=== PATIENT | male | born 1975 | race Caucasian/White ===

== ENCOUNTER → 2020-07-27 01:53 | Outpatient (CLI) | payer OTHER, SELFPAY ==
[2020-07-27 19:34] LABS: SARS-CoV-2 RNA PCR Negative
== END ==
PROVIDERS: PCP Family Medicine; Visit Provider Internal Medicine Gastroenterology
DX: Z01.812 Encounter for preprocedural laboratory examination (principal); Z20.822 Contact with and (suspected) exposure to COVID-19
CPT/HCPCS: C9803; U0003; U0005

== ENCOUNTER 2020-07-30 01:20 | Day surgery (SDC) | payer OTHER, SELFPAY ==
[2020-07-16 15:20] VITALS: BMI 35.4
[2020-07-30] MEDS: LACTATED RINGERS 1,000 ML 150 ML IV CONT (13:52)
--- NOTE | 2020-07-30 13:52 | WPDANESEPPF ---
Anes - Initial Pre Proc Eval Procedure: Operation Date: 07/30/20 14:00 Proposed Procedures p Esophagogastroduodenoscopy - Behzad Mcgill MD Date/Time: 07/30/20 13:52 Surgeon: Behzad Mcgill MD Pre Op Diagnosis: vasques's esophagus Patient Data Age: 44 Gender: M Height: 5 ft 9 in Weight: 109 kg Allergies Allergy/AdvReac Type Severity Reaction Status Date / Time No Known Allergies Allergy Verified 07/30/20 13:53 Home Medications Medication Instructions Recorded Confirmed Type ascorbic acid (vitamin C) 1,000 mg 1,000 mg PO Q12H 06/19/20 07/16/20 History tablet,extended release diazepam 5 mg tablet 5 mg PO BID PRN 06/19/20 07/16/20 History multivitamin 1 tablet PO DAILY 06/19/20 07/16/20 History naproxen 500 mg tablet 500 mg PO BID 06/19/20 07/16/20 History niacin 250 mg tablet 250 mg PO DAILY 06/19/20 07/16/20 History omeprazole 20 mg capsule,delayed 20 mg PO DAILY 06/19/20 07/16/20 History release linaclotide 72 mcg capsule 72 mcg PO DAILY #30 cap 06/21/20 07/16/20 Rx acetaminophen 325 mg capsule 325 mg PO Q6H PRN 07/08/20 07/16/20 History Patient hx anesthesia problems: none Family hx anesthesia problems: none PMFSH Past Medical History Medical History Barretts esophagus Constipation GERD (gastroesophageal reflux disease) Hiatal hernia Family History Family History Father Acute myocardial infarction CAD (coronary artery disease) Smoker Sibling Cerebral palsy Grandparent Breast cancer Other Hypertension Diabetes mellitus Heart disease Social History Social History Smoking packs per day: 1 Smoking cigarettes per day: 20.0 Years smoked: 20 Smoking pack-years: 20.00 Smoking status: Former smoker Tobacco type: cigarettes Smoking end date: 04/26/16 Alcohol intake: current Drinks per week: 6 Substance use: never Substance use type: does not use Living arrangements: with family Additional occupation/education comments: [employer] Gender identity (if verbalized by the patient): Male Spiritual care concerns: No Anes - Eval Final PreProcedure Day of Procedure 07/30/20 13:52 Patient weight: obese Heart: regular rate and rhythm Lungs: clear to auscultation Airway: Mallampati scale class II Neurological: alert and oriented Last oral intake: >/= 8 hours ASA classification: III Emergent: no Anesthetic plan: proceed Anesthesia type and monitoring: general GIVS and standard monitoring Informed Consent: The patient's anesthetic plan and its attendant risks and benefits were discussed with the patient/family/POA. Questions were solicited and answers provided to the satisfaction of the patient/family/POA.
[2020-07-30 13:55] VITALS: BP 122/87; PULSE 76; RESP 18; TEMP 36.4; O2SAT 99; BMI 34.7
--- NOTE | 2020-07-30 14:32 | PM.HPGS ---
History of Present Illness History of Present Illness Consent: Risks, benefits, and alternatives have been discussed and questions answered. Patient agrees to proceed with procedure. 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 He is no longer getting relief with OTC and prescription medication, also had hiatal hernia and would like to proceed with umesh fundoplication. He just completed esophageal manometry at [facility]. Review of Systems Constitutional: Constitutional: Denies headache(s) and Denies weakness Eyes: Eyes: Denies blurry vision ENT: Reports Normal hearing present, Denies headache(s) and Denies neck pain Cardiovascular: Cardiovascular: Denies chest pain and Denies dyspnea Respiratory: Respiratory: Denies dyspnea Gastrointestinal: Gastrointestinal: Reports no additional gastrointestinal complaints Genitourinary: Genitourinary: Denies dysuria Musculoskeletal: Musculoskeletal: Denies neck pain Integumentary/Breasts: Skin/Breast: Denies dry skin Neurologic: Reports Normal hearing present, Denies headache(s) and Denies weakness Psychiatric: Psychiatric: Denies anxiety Endocrine: Endocrine: Denies change in body appearance Hematologic/Lymphatic: Hematologic/Lymphatic: Denies easy bleeding Allergic/Immunologic: Allergic/Immunologic: Denies urticaria PMFSH Past Medical History Medical History Barretts esophagus Constipation GERD (gastroesophageal reflux disease) Hiatal hernia Family History Family History Father Acute myocardial infarction CAD (coronary artery disease) Smoker Sibling Cerebral palsy Grandparent Breast cancer Other Hypertension Diabetes mellitus Heart disease Social History Social History (Reviewed 07/08/20 @ 12:52 by Rashmi Langley [facility]) Smoking packs per day: 1 Smoking cigarettes per day: 20.0 Years smoked: 20 Smoking pack-years: 20.00 Smoking status: Former smoker Tobacco type: cigarettes Smoking end date: 04/26/16 Alcohol intake: current Drinks per week: 6 Substance use: never Substance use type: does not use Living arrangements: with family Additional occupation/education comments: [employer] Gender identity (if verbalized by the patient): Male Spiritual care concerns: No Meds Home Medications and Allergies Home Medications Medication Instructions Recorded Confirmed Type ascorbic acid (vitamin C) 1,000 mg 1,000 mg PO Q12H 06/19/20 07/16/20 History tablet,extended release diazepam 5 mg tablet 5 mg PO BID PRN 06/19/20 07/16/20 History multivitamin 1 tablet PO DAILY 06/19/20 07/16/20 History naproxen 500 mg tablet 500 mg PO BID 06/19/20 07/16/20 History niacin 250 mg tablet 250 mg PO DAILY 06/19/20 07/16/20 History omeprazole 20 mg capsule,delayed 20 mg PO DAILY 06/19/20 07/16/20 History release linaclotide 72 mcg capsule 72 mcg PO DAILY #30 cap 06/21/20 07/16/20 Rx acetaminophen 325 mg capsule 325 mg PO Q6H PRN 07/08/20 07/16/20 History Allergies Allergy/AdvReac Type Severity Reaction Status Date / Time No Known Allergies Allergy Verified 07/30/20 13:53 Vital Signs Vital Signs - 24 hr 07/30/20 13:55 Temperature 97.6 F Pulse Rate 76 Respiratory Rate 18 Blood Pressure 122/87 Pulse Oximetry 99 Exam Const: General: comfortable and no acute distress HENMT: General nose exam: Normal nares present Eyes: General: appearance normal, both eyes and all related structures Neck: Neck: no JVD Resp: Auscultation: clear to auscultation bilaterally Cardio: Rate: regular rate Rhythm: regular rhythm GI: Inspection: non-distended GI Palp: Yes Soft to palpation Skin: General skin exam: normal color Neuro: General: gait normal Speech: normal speech Extrem: General: normal to
[2020-07-30] MEDS: BENZOCAINE (*SP) 60 ML SPRAY CAN (HURRICAINE) 1 SPRAY MUCOUS MEM (14:38)
[2020-07-30 14:51] VITALS: BP 119/86; PULSE 75; RESP 18; O2SAT 96
[2020-07-30 15:01] VITALS: BP 117/77; PULSE 72; RESP 18; O2SAT 95
[2020-07-30 15:09] VITALS: BP 117/82; PULSE 66; RESP 18; O2SAT 98
== END 2020-07-30 15:20 | disposition home or self-care (01) ==
PROVIDERS: PCP Family Medicine; Visit Provider Internal Medicine Gastroenterology
PROC: 0DJ08ZZ Inspection of Upper Intestinal Tract, Via Natural or Artificial Opening Endoscopic (ICD-10-PCS; CPT 43235; principal; 2020-07-30 14:00)
DX: K21.00 Gastro-esophageal reflux disease with esophagitis, without bleeding (principal); K22.70 Barrett's esophagus without dysplasia; K44.9 Diaphragmatic hernia without obstruction or gangrene; K29.50 Unspecified chronic gastritis without bleeding; Z87.891 Personal history of nicotine dependence; E66.9 Obesity, unspecified; Z68.34 Body mass index [BMI] 34.0-34.9, adult
CPT/HCPCS: 43239; 88305; C9803; J7120; U0003; U0005

== ENCOUNTER → 2020-09-16 02:02 | Outpatient (CLI) | payer OTHER, SELFPAY ==
[2020-09-18 12:55] LABS: SARS-CoV-2 RNA PCR Negative
== END ==
PROVIDERS: PCP Family Medicine; Visit Provider Surgery
DX: Z01.812 Encounter for preprocedural laboratory examination (principal); Z20.822 Contact with and (suspected) exposure to COVID-19
CPT/HCPCS: C9803; U0003; U0005

== ENCOUNTER 2020-09-16 08:28 | Outpatient (CLI) | payer OTHER, SELFPAY | END 2020-09-16 08:29 | disposition home or self-care (01) | PROVIDERS: PCP Family Medicine; Visit Provider Anesthesiology | DX: K22.70 Barrett's esophagus without dysplasia (principal) | CPT/HCPCS: 36415; 86850; 86900; 86901 ==

== ENCOUNTER 2020-09-20 11:13 | Observation (INO) | payer OTHER, SELFPAY ==
[2020-09-10 14:20] VITALS: BMI 35.8
--- NOTE | 2020-09-16 16:30 | PM.IMHP ---
H&P: HPI History of Present Illness Date/Time: 09/16/20 16:30 Chief Complaint: Gastroesophageal reflux Narrative: the patient is a 44-year-old man who has been bothered with refractory gastroesophageal reflux disease for at least 20 years. He has tried numerous medications. Most recently he is on Prilosec daily but still has reflux symptoms. At night he has to sleep with his head very elevated or in a recliner otherwise he will cough and choke in the night. He gets in ascitic taste in his mouth as well. At least since 2018 he has been known to have long segment Locke's esophagus without dysplasia. This is documented in an EGD and pathology report from another facility. He also had esophagitis on his pathology report. More recently, in July of this year, Dr. Prieto did an EGD and found Locke's esophagus without dysplasia as well as esophagitis. He has a moderate hiatal hernia. He underwent esophageal manometry at an outside facility which showed normal esophageal peristalsis with a hypotensive distal esophageal sphincter that relaxes normally. After thorough discussion in the office, he is taken to surgery now for laparoscopic Zeenat fundoplication. Review of Systems Review of Systems: All systems reviewed & are unremarkable except as noted in HPI and below Constitutional: Constitutional: Denies headache(s) ENT: Reports dysphagia and Reports hoarseness Cardiovascular: Cardiovascular: Denies chest pain and Denies dyspnea Respiratory: Respiratory: Reports cough and Denies dyspnea Gastrointestinal: Gastrointestinal: Denies bloating, Reports constipation ( Takes Linzess) and Denies nausea Neurologic: Denies confusion and Denies headache(s) Psychiatric: Psychiatric: Denies confusion [facility] Past Medical History Medical History (Updated 09/16/20 @ 16:41 by Rogelio Blas MD) Constipation Family History Family History Father Acute myocardial infarction CAD (coronary artery disease) Smoker Sibling Cerebral palsy Grandparent Breast cancer Other Hypertension Diabetes mellitus Heart disease Social History Social History Smoking packs per day: 0.5 Smoking cigarettes per day: 10.0 Years smoked: 20 Smoking pack-years: 10.00 Smoking status: Former smoker Tobacco type: cigarettes Smoking end date: 04/26/16 Alcohol intake: current Drinks per week: 5 Substance use: never Substance use type: does not use Last use: 2014 Additional occupation/education comments: [employer] Gender identity (if verbalized by the patient): Male Spiritual care concerns: No Meds Home Medications and Allergies Home Medications Medication Instructions Recorded Confirmed Type ascorbic acid (vitamin C) 1,000 mg 1,000 mg PO Q12H 06/19/20 09/10/20 History tablet,extended release diazepam 5 mg tablet 5 mg PO BID PRN 06/19/20 09/10/20 History multivitamin 1 tablet PO DAILY 06/19/20 09/10/20 History niacin 250 mg tablet 250 mg PO DAILY 06/19/20 09/10/20 History omeprazole 20 mg capsule,delayed 20 mg PO DAILY 06/19/20 09/10/20 History release linaclotide 72 mcg capsule 72 mcg PO DAILY #30 cap 06/21/20 09/10/20 Rx acetaminophen 325 mg capsule 325 mg PO Q6H PRN 07/08/20 09/10/20 History naproxen 500 mg tablet 500 mg PO BID PRN 08/19/20 09/10/20 History Allergies Allergy/AdvReac Type Severity Reaction Status Date / Time No Known Allergies Allergy Verified 09/10/20 14:52 Exam Const: General: cooperative, comfortable, no acute distress, alert and awake; No confusion Orientation/consciousness: No confusion HENMT: Head: normocephalic, atraumatic, no contusions and no scalp lesions Ears: external ears normal General nose exam: Normal external nose present Face and sinus: face symmetric and dry mucous membranes Mouth: Yes Normal oral and palatal mucosa present and Yes ton
[2020-09-19] VITALS (14 sets, daily range): BP systolic 119–150; BP diastolic 79–94; PULSE 65–104; RESP 12–21; TEMP 35.9–36.8; O2SAT 95–99; BMI 34.3; BMI 34.8
[2020-09-19] MEDS: LACTATED RINGERS 1,000 ML 30 ML IV CONT ×3 (09:24→14:30)
--- NOTE | 2020-09-19 09:59 | P.PNAN_ITS ---
Anes - Initial Pre Proc Eval Procedure: Operation Date: 09/19/20 10:30 Proposed Procedures p Laparoscopic Zeenat Fundoplication - Rogelio Blas MD Date/Time: 09/19/20 09:59 Surgeon: Rogelio Blas MD Pre Op Diagnosis: esophagitis, gerd Patient Data Age: 44 Gender: M Height: 1.75 m Weight: 105.5 kg Last Vital Signs Temp 35.9 C L 09/19/20 09:07 Pulse 78 09/19/20 09:07 Resp 18 09/19/20 09:07 BP 119/83 09/19/20 09:07 Pulse Ox 97 09/19/20 09:07 Allergies Allergy/AdvReac Type Severity Reaction Status Date / Time No Known Allergies Allergy Verified 09/19/20 08:43 Home Medications Medication Instructions Recorded Confirmed Type ascorbic acid (vitamin C) 1,000 mg 1,000 mg PO Q12H 06/19/20 09/19/20 History tablet,extended release diazepam 5 mg tablet 5 mg PO BID PRN 06/19/20 09/19/20 History multivitamin 1 tablet PO DAILY 06/19/20 09/19/20 History niacin 250 mg tablet 250 mg PO DAILY 06/19/20 09/19/20 History omeprazole 20 mg capsule,delayed 20 mg PO DAILY 06/19/20 09/19/20 History release linaclotide 72 mcg capsule 72 mcg PO DAILY #30 cap 06/21/20 09/19/20 Rx acetaminophen 325 mg capsule 325 mg PO Q6H PRN 07/08/20 09/19/20 History naproxen 500 mg tablet 500 mg PO BID PRN 08/19/20 09/19/20 History Patient hx anesthesia problems: none Family hx anesthesia problems: none PMFSH Past Medical History Medical History (Updated 09/19/20 @ 09:58 by Keagan No DO) Anxiety Locke's esophagus without dysplasia Constipation Gastro-esophageal reflux disease with esophagitis Family History Family History Father Acute myocardial infarction CAD (coronary artery disease) Smoker Sibling Cerebral palsy Grandparent Breast cancer Other Hypertension Diabetes mellitus Heart disease Social History Social History (Updated 09/19/20 @ 09:59 by Keagan No DO) Smoking packs per day: 0.5 Smoking cigarettes per day: 10.0 Years smoked: 20 Smoking pack-years: 10.00 Smoking status: Former smoker Tobacco type: cigarettes Smoking end date: 04/26/16 Alcohol intake: current Alcohol use details: drinks 5-6 beers, 3-4x a week Substance use: never Substance use type: does not use Last use: 2014 Additional occupation/education comments: [employer] Gender identity (if verbalized by the patient): Male Spiritual care concerns: No Anes - Eval Final PreProcedure Day of Procedure 09/19/20 09:59 Patient weight: obese Heart: regular rate and rhythm Lungs: clear to auscultation and normal air movement Airway: Mallampati scale class II Neurological: alert and oriented Last oral intake: >/= 8 hours ASA classification: III Emergent: no Anesthetic plan: proceed Anesthesia type and monitoring: general ETT and standard monitoring Informed Consent: The patient's anesthetic plan and its attendant risks and benefits were discussed with the patient/family/POA. Questions were solicited and answers provided to the satisfaction of the patient/family/POA.
--- NOTE | 2020-09-19 10:53 | WPDHPUPDATE1 ---
History and Physical Update Update Date/Time: 09/19/20 10:53 History and Physical has been reviewed, including an updated exam of the patient. There are NO changes in the patient's condition. Risks, benefits, and alternatives have been discussed and questions answered. Patient agrees to proceed with procedure.
[2020-09-19] MEDS: ceFAZolin 2 GM/D5W 50 ML 2 GM/50 ML BAG IVPB (11:00)
[2020-09-19] MEDS: BUPIVACAINE/EPINEPHRINE 0.5% 10 ML VIAL 30 ML INFILTRATE (12:23)
[2020-09-19] MEDS: fentaNYL CITRATE INJ (*CRX) 100 MCG/2 ML VIAL 25 MCG IV PUSH ×2 (14:51→15:16)
--- NOTE | 2020-09-19 14:58 | PM.PROC ---
Procedure Note - Detailed Date of procedure: 09/19/20 Pre-op diagnosis: GERD with esophagitis, Locke's esophagus GERD with esophagitis, Locke's esophagus Post-op diagnosis: same Procedure performed: Laparoscopic Zeenat fundoplication Description of procedure: The patient was taken to surgery and induced into general anesthesia. Full prep and drape of the abdomen was carried out. 0.5% Marcaine with epinephrine local was infiltrated prior to placement of each of the trocars. The initial trocar was in the midline cephalad to the umbilicus. The varies needle was used to gain access to the abdominal cavity. Saline drop technique was used to confirm. We insufflated the abdomen and then used a [address] the initial port. With this port intraperitoneal, we then placed the remaining ports under direct visualization. A left lateral subcostal 10 11 port was placed. Right and left epigastric trocars which were also 10 11 ports were placed. A 12 mm left lateral subcostal port was placed. The patient was then placed in reverse Trendelenburg. A liver retractor was introduced from the right lateral port and then used to elevate the lateral segment of the left lobe of the liver, thereby exposing the diaphragmatic hiatus and hiatal hernia. We started by dividing the hepatic colic ligament over lying the right juana. Virtually all the dissection was done with the LigaSure. No cautery was used. We then further exposed the right juana of the diaphragm dissecting between this and the hiatal hernia. Gentle traction on the herniated contents was used and we eventually were able to identify the left juana and dissect posterior to the esophagus and upper stomach. Some additional dissection in the anterior most aspect of the diaphragmatic hiatus was also carried out. We then turned the stomach so that the greater curvature and greater omentum were exposed. This was done near the upper stomach. Again using the LigaSure, we entered the lesser sac and divided the greater omentum from the upper stomach and fundus of the stomach. The fundus actually was very close to and somewhat adherent with adhesions to the left juana. We took great care to avoid any injury to the spleen or its vessels. We went on to dissect adhesions that were overlying the left juana. Eventually the left juana was fully exposed. The esophagus was then retracted to the right and dissection was carried out in the mediastinum freeing the esophagus from adhesions there and elongating the shortened esophagus. This dissection was carried quite high in the mediastinum. We then turned the stomach back so that the fundus was on the left side of the abdomen. We looked at the diaphragmatic hiatus and up into the mediastinum from the right side of the esophagus. With gentle traction on the upper stomach we continued dissection in the mediastinum to free up the esophagus more thoroughly. Also dissection under the distal esophagus was carried out. Some fatty tissue around the gastroesophageal junction that was also part of the hernia sac was dissected and removed from the abdomen. This was discarded. I was then able to place a [place] drain around the distal esophagus. It was clipped to itself. This served as a good traction point just above the stomach and at the distal esophagus. Using this and then further exposing the esophagus in the mediastinum I dissected nearly to the clavicles to free all the esophagus in the mediastinum so that there was plenty of intra-abdominal esophagus. This was done 1st from the right side of the esophagus and then we also flipped the stomach again and dissected it on the left side of the esophagus. Care was taken to leave the vagus nerves attached to the esophagus and they were not injured. Now that the stomach was lying under no tension in the abdomen and there was about 6 cm of intra-abdominal esophagus we proceeded with the diaphragmatic closure. Ethibond sutures
--- NOTE | 2020-09-19 16:05 | ADMGEN ---
This patient, Francis Zheng, was admitted to Medical Room 242-. Patient/family oriented to hospital policies and general routines including ID bracelet, bed and alarms, visiting hours, pain management, procedures, bathroom and other care routines, personal items, smoking policy, room service/diet, and visiting hours. Information on how to activate the Rapid Response Team has been discussed. Patient/Family are encouraged to report perceived risks to care and to ask questions if they do not understand what they are told or what they should do.
[2020-09-19] MEDS: HYDROcodone/acetaminophen (*CRX) 10-325 MG TABLET 1 TAB PO ×2 (16:42→22:03)
[2020-09-19] MEDS: LACTATED RINGERS 1,000 ML 100 ML IV CONT (16:46)
[2020-09-19] MEDS: ENOXAPARIN 30 MG/0.3 ML SYRINGE SUB-Q (19:48)
[2020-09-19] MEDS: HYDROcodone/acetaminophen (*CRX) 5-325 MG TABLET 1 TAB PO (19:50)
[2020-09-19] MEDS: diazePAM (*CRX) 5 MG TABLET PO (22:03)
[2020-09-20] VITALS: BP 131/80; PULSE 105; RESP 18; TEMP 36.4; O2SAT 94
[2020-09-20] MEDS: HYDROcodone/acetaminophen (*CRX) 10-325 MG TABLET 1 TAB PO ×2 (03:29→12:11)
[2020-09-20] MEDS: SENNA/DOCUSATE SODIUM TABLET 2 TAB PO (05:07)
[2020-09-20 05:11] VITALS: BP 125/78; PULSE 87; RESP 20; TEMP 36.2; O2SAT 95
[2020-09-20 05:25] LABS: Hematocrit 41.4 % (42.0-52.0); Hemoglobin 13.7 g/dL (14.0-18.0); Mean Corpuscular HGB Conc 33.1 g/dl (32-36); Mean Corpuscular Hemoglobin 26.9 pg (26-34); Mean Corpuscular Volume 81.3 fl (80-100); Mean Platelet Volume 8.6 fl (7.4-10.4); Platelet Count Result 332 k/mm3 (150-375); Red Blood Count 5.09 M/mm3 (4.6-6.20); Red Cell Distribution Width 13.9 % (11.5-14.5); White Blood Count 10.2 K/mm3 (4.5-10.0)
[2020-09-20 06:26] LABS: Anion Gap 8 mmol/L (8-16); Blood Urea Nitrogen 10 mg/dL (9-20); Calcium 9.2 mg/dL (8.4-10.2); Carbon Dioxide 30 mmol/L (22-30); Chloride 101 mmol/L (98-107); Estimated CRCL calculation 94 ml/min; Estimated Glomerular Filt Rate > 60; Glucose 112 mg/dL (75-110); Potassium 3.9 mmol/L (3.4-5.0); Sodium 139 mmol/L (137-145)
--- NOTE | 2020-09-20 07:23 | WPDANESPN ---
Anes - Prog Note Post-Op Date/Time: 09/20/20 07:23 Cardiovascular status: normal Respiratory status: normal Airway patency: baseline Mental status: baseline Post-Op hydration status: normal Vital Signs: Last Vital Signs Temp 36.2 C L 09/20/20 05:11 Pulse 87 09/20/20 05:11 Resp 20 09/20/20 05:11 BP 125/78 09/20/20 05:11 Pulse Ox 95 09/20/20 05:11 Pain Score (VAS): 2 I/O: Intake & Output 09/19/20 09/19/20 09/20/20 15:59 23:59 07:59 Intake Total 650 1230 800 Output Total 250 2300 Balance 650 980 -1500 Laboratory Tests 09/20/20 04:58 09/20/20 05:54 09/20/20 09/20/20 04:58 05:54 WBC 10.2 H RBC 5.09 Hgb 13.7 L Hct 41.4 L MCV 81.3 MCH 26.9 MCHC 33.1 RDW 13.9 Plt Count 332 MPV 8.6 Sodium 139 Potassium 3.9 Chloride 101 Carbon Dioxide 30 Anion Gap 8 BUN 10 Creatinine 1.10 Estim Creat Clear Calc 94 Estimated GFR > 60 Glucose 112 H Calcium 9.2 Post-procedural complaints: none Patient Feedback: Patient satisfied with anesthetic care.
[2020-09-20] MEDS: ENOXAPARIN 30 MG/0.3 ML SYRINGE SUB-Q ×2 (07:54→20:09)
[2020-09-20] MEDS: HYDROcodone/acetaminophen (*CRX) 5-325 MG TABLET 1 TAB PO ×3 (07:54→21:19)
[2020-09-20] MEDS: PANTOPRAZOLE 40 MG TABLET PO (07:55)
[2020-09-20] MEDS: polyethylene glycoL 3350 17 GM POWD.PACK PO (07:55)
[2020-09-20 10:00] VITALS: BP 131/87; PULSE 80; RESP 14; TEMP 36.2; O2SAT 97
--- NOTE | 2020-09-20 10:53 | PM.PNGS ---
Progress Note: A&P Assessment and Plan (1) Gastro-esophageal reflux disease with esophagitis: Qualifiers: Esophagitis bleeding: without hemorrhage Qualified Code(s): K21.00 - Gastro-esophageal reflux disease with esophagitis, without bleeding Code(s): K21.00 - Gastro-esophageal reflux disease with esophagitis, without bleeding Status: Chronic Assessment and Plan: doing well postop day 1. Status post Zeenat fundoplication. Will advance diet to a low fiber, low residue. Increase ambulation. Recheck labs again tomorrow. (2) Locke's esophagus without dysplasia: Code(s): K22.70 - Locke's esophagus without dysplasia Status: Chronic (3) Constipation: Qualifiers: Constipation type: unspecified constipation type Qualified Code(s): K59.00 - Constipation, unspecified Code(s): K59.00 - Constipation, unspecified Status: Chronic Assessment and Plan: On MiraLax and Senokot. Will send home on these as well. Subjective Subjective Date/Time Seen: 09/20/20 10:53 Post Op day: 1 Patient reports: pain is less ( had a rough night with neck pain and abdominal pain. Doing better this morning.), tolerating liquids well and afebrile Exam GI: Inspection: incision ( All incisions dry and healing well) and obesity GI Palp: Yes Firmness to palpation present (GI), Yes Tenderness to palpation present (GI) ( upper abdomen and incisions), No Guarding due to palpation present (GI), No Hernia present and No Palpable mass present Auscultation: normal bowel sounds Objective Data Vital Signs Vital Signs: Vital Signs - 24 hr 09/19/20 14:00 09/19/20 14:15 09/19/20 14:30 Temperature 36.2 C L Pulse Rate 99 79 80 Respiratory Rate 16 21 H 16 Blood Pressure 150/79 H 133/81 135/90 Pulse Oximetry 97 97 97 09/19/20 14:45 09/19/20 15:00 09/19/20 15:15 Temperature Pulse Rate 67 77 85 Respiratory Rate 12 18 17 Blood Pressure 133/84 140/94 H 142/90 H Pulse Oximetry 98 98 97 09/19/20 15:26 09/19/20 15:45 09/19/20 16:00 Temperature 36.5 C 36.4 C L 36.1 C L Pulse Rate 72 65 70 Respiratory Rate 21 H 18 18 Blood Pressure 144/79 H 138/84 139/86 Pulse Oximetry 97 99 95 09/19/20 16:45 09/19/20 17:45 09/19/20 20:00 Temperature 36.2 C L 36.8 C Pulse Rate 81 69 104 H Respiratory Rate 18 18 18 Blood Pressure 150/88 H 144/87 H Pulse Oximetry 96 97 98 09/19/20 20:17 09/20/20 00:00 09/20/20 05:11 Temperature 36.7 C 36.4 C L 36.2 C L Pulse Rate 104 H 105 H 87 Respiratory Rate 18 18 20 Blood Pressure 148/86 H 131/80 125/78 Pulse Oximetry 98 94 95 09/20/20 10:00 Temperature 36.2 C L Pulse Rate 80 Respiratory Rate 14 Blood Pressure 131/87 Pulse Oximetry 97 Intake/Output Intake/Output: Intake & Output 09/17/20 09/18/20 09/19/20 09/20/20 23:59 23:59 23:59 23:59 Intake Total 1880 1430 Output Total 250 2300 Balance 1630 -870 Meds/Results Medications: Active Medications Generic Name Dose Route Start Last Admin Trade Name Freq PRN Reason Stop Dose Admin Acetaminophen 500 mg 09/19/20 16:20 Acetaminophen 500 Mg Tablet PO Q6H PRN Mild Pain (1-3) or Fever Hydrocodone Bitart/Acetaminophen 1 tab 09/19/20 16:20 09/20/20 07:54 Hydrocodone/Acetaminophen (*Crx) 5-325 Mg Tablet PO 1 tab Q4H PRN Administration Pain Rated 4-6 Hydrocodone Bitart/Acetaminophen 1 tab 09/19/20 16:20 09/20/20 03:29 Hydrocodone/Acetaminophen (*Crx) 10-325 Mg Tablet PO 1 tab Q6H PRN Administration Pain Rated 7-10 Diazepam 5 mg 09/19/20 16:20 09/19/20 22:03 Diazepam (*Crx) 5 Mg Tablet PO 5 mg BID PRN Administration Anxiety Enoxaparin Sodium 30 mg 09/19/20 21:00 09/20/20 07:54 Enoxaparin 30 Mg/0.3 Ml Syringe SUB-Q 30 mg Q12HR SETH Administration Morphine Sulfate 2 mg 09/19/20 16:20 Morphine Sulfate (*Crx) 2 Mg/Ml Inj IV PUSH Q2H PRN Pain Rated 4-6 Morphine Sulfate 4 mg 09/19
[2020-09-20] MEDS: ONDANSETRON INJ 4 MG/2 ML VIAL IV PUSH ×3 (12:11→21:19)
[2020-09-20 14:00] VITALS: BP 120/79; PULSE 91; RESP 14; TEMP 36.3; O2SAT 96
[2020-09-20 22:00] VITALS: BP 134/85; PULSE 87; RESP 18; TEMP 36.9; O2SAT 96
[2020-09-21] MEDS: HYDROcodone/acetaminophen (*CRX) 5-325 MG TABLET 1 TAB PO ×2 (01:29→06:25)
[2020-09-21] MEDS: ONDANSETRON INJ 4 MG/2 ML VIAL IV PUSH ×2 (01:31→06:25)
[2020-09-21 06:00] VITALS: BP 134/88; PULSE 91; RESP 18; TEMP 36.2; O2SAT 96
[2020-09-21] MEDS: polyethylene glycoL 3350 17 GM POWD.PACK PO (08:22)
[2020-09-21] MEDS: PANTOPRAZOLE 40 MG TABLET PO (08:22)
[2020-09-21] MEDS: ENOXAPARIN 30 MG/0.3 ML SYRINGE SUB-Q (08:22)
[2020-09-21 10:17] VITALS: O2SAT 96
--- NOTE | 2020-09-21 11:50 | PM.DS ---
DS: Admitting Diagnosis Admitting Diagnosis Admitting Diagnosis: GERD with esophagitis, Locke's esophagus DS: Discharge Diagnosis Discharge Diagnosis (1) Gastro-esophageal reflux disease with esophagitis: Qualifiers: Esophagitis bleeding: without hemorrhage Qualified Code(s): K21.00 - Gastro-esophageal reflux disease with esophagitis, without bleeding Code(s): K21.00 - Gastro-esophageal reflux disease with esophagitis, without bleeding Status: Chronic Assessment and Plan: s/p Zeenat fundoplication, routine postop care, f/u 2 wks (2) Locke's esophagus without dysplasia: Code(s): K22.70 - Locke's esophagus without dysplasia Status: Chronic Assessment and Plan: see above DS: Summary Hospital Course Reason for hospitalization: GERD with esophagitis, Locke's esophagus Hospital Course: Pt is a 44 y/o M c GERD with esophagitis, Locke's esophagus refractory to medical management. Pt taken to OR on 09/19 for lap Zeenat fundoplication by Dr. Blas, please see op report for details. Postop, pt has done well on surgical floor. Pt reports pain is well controlled c po analgesia. Pt pauline diet and passing flatus. Pt c issues of chronic constipation and has been instructed to cont home bowel regimen. Pt will be d/c'd home c routine postop care instructions and po analgesia. Pt to f/u c Dr. Blas in 2 wks. Status at Discharge Functional status at discharge: independent ambulation Overall status at discharge: patient is progressing back to baseline Time Spent with Patient Time attestation: Total time spent providing and/or coordinating discharge services: Time spent: Less than 30 minutes Exam Const: General: cooperative, comfortable and no acute distress Nutritional Appearance: obese Orientation/consciousness: patient oriented x3 Resp: Effort & Inspection: normal respiratory effort Auscultation: clear to auscultation bilaterally Cardio: Rate: regular rate Rhythm: regular rhythm GI: Inspection: normal to inspection, distended and incision GI Palp: Yes Soft to palpation and Yes Tenderness to palpation present (GI) Discharge Plan Discharge Attending physician on discharge: Rogelio Blas Discharging Clinician: Linda Middleton Anticipated Discharge Date/Time: 09/21/20 11:48 Patient Disposition: Home, Self-Care Activity: other - see discharge instructions Diet: low fiber Wound Care Instructions: incision open to air Discharge Instructions: Ambulate 3-4 x per day and as tolerated. No lifting over 15-20lbs. May bathe or shower. Stairs are OK. May drive a car in 3 days. Patient Instructions: Pain Management (DC), Fundoplication in Adults (DC) Stand Alone Forms: General Discharge Instructions, Low Residue/Low Fiber Diet Follow-up/Referrals: Rogelio Blas MD [Physician] - Keep Reg. Scheduled Appt. Discharge Medications: New hydrocodone-acetaminophen 5-325 mg tablet 1 - 2 tablet PO Q6H PRN (Reason: pain) Qty: 20 RF: 0 polyethylene glycol 3350 [Miralax] 17 gram/dose powder 17 g PO DAILY Qty: 238 RF: 0 Continued ascorbic acid (vitamin C) 1,000 mg tablet extended release 1,000 mg PO Q12H RF: 0 diazepam 5 mg tablet 5 mg PO BID PRN (Reason: Anxiety) RF: 0 multivitamin [Daily Multi-Vitamin] Tablet 1 tablet PO DAILY RF: 0 niacin 250 mg tablet 250 mg PO DAILY RF: 0 omeprazole 20 mg capsule,delayed release(DR/EC) 20 mg PO DAILY RF: 0 naproxen 500 mg tablet 500 mg PO BID PRN (Reason: Pain) RF: 0 Linzess 72 mcg capsule 72 mcg PO DAILY Qty: 30 RF: 5 acetaminophen [Tylenol] 325 mg capsule 325 mg PO Q6H PRN (Reason: Pain) RF: 0 Date of admission: 09/20/20 11:13 Primary Care Provider: Blake,Jake Elizabeth Admitting Provider: Rogelio Blas Attending physician on admission: Rogelio Blas Condition: Stable
[2020-09-21] MEDS: HYDROcodone/acetaminophen (*CRX) 10-325 MG TABLET 1 TAB PO (12:28)
== END 2020-09-21 13:00 | disposition home or self-care (01) ==
LOC: ANHSURGERY 11:20 → ANH2MED 15:21
PROVIDERS: Admitting Provider Surgery; PCP Family Medicine; Visit Provider Surgery
PROC: 0DV44ZZ Restriction of Esophagogastric Junction, Percutaneous Endoscopic Approach (ICD-10-PCS; CPT 43281; principal; 2020-09-19 10:30)
DX: K21.00 Gastro-esophageal reflux disease with esophagitis, without bleeding (principal); K22.70 Barrett's esophagus without dysplasia; K59.00 Constipation, unspecified; F41.9 Anxiety disorder, unspecified; Z87.891 Personal history of nicotine dependence; E66.9 Obesity, unspecified; Z68.34 Body mass index [BMI] 34.0-34.9, adult
CPT/HCPCS: 43280; 36415; 80048; 85027; A9270; C1713; C9803; G0378; J0131; J0330; J0690; J1100; J1650; J2405; J2704; J2710; J3010; J7120; U0003; U0005

== ENCOUNTER 2023-07-06 16:30 | Outpatient (CLI) | payer OTHER, SELFPAY ==
[2023-07-06 17:06] LABS: Alanine Aminotransferase 31 U/L (6-50); Albumin Level 4.3 g/dL (3.5-5.1); Alkaline Phosphatase 67 U/L (38-126); Amylase 76 U/L (30-110); Aspartate Amino Transferase 27 U/L (17-59); Bilirubin,Total 0.6 mg/dL (0.2-1.3); Lipase 181 U/L (23-300)
== END 2023-07-06 16:31 | disposition home or self-care (01) ==
PROVIDERS: PCP Family Medicine; Visit Provider Surgery
DX: Z01.818 Encounter for other preprocedural examination (principal); K80.10 Calculus of gallbladder with chronic cholecystitis without obstruction
CPT/HCPCS: 36415; 80076; 82150; 83690

== ENCOUNTER 2023-07-14 01:38 | Day surgery (SDC) | payer OTHER, SELFPAY ==
[2023-07-06 14:33] VITALS: BMI 27.3
--- NOTE | 2023-07-06 14:37 | PC.NURSE ---
Report to the Outpatient Waiting Room, entrance under the green pavilion located off [facility], at time 6:00 on date 07/14/23. Planned Procedure Time: 8:00. Time changes happen often and if your time is changed the preop area will call you the afternoon before. - You and your visitor will be asked to self-screen and do not enter if you have any COVID symptoms. - A mask is optional within the hospital at this time. Patients may have clear liquids (water, carbonated beverages, clear teas, apple juice) until 3 hours prior to surgery (5:00) with a maximum of 20 ounces. - No food from midnight until time of surgery Take the following medications with a SIP of water the morning of surgery: DIAZEPAM IF NEEDED DO NOT STOP ANY OF YOUR OTHER PRESCRIPTION MEDICATIONS PRIOR TO SURGERY ?EXCEPT THE FOLLOWING Medications to discontinue per physician: WEGOVY Date to take last dose: PT STATES LAST DOSE WAS 07/01/23 Please no make-up, nail english, hairspray, perfume, deodorant, or body powder the day of surgery. No jewelry (including any body piercings) or valuables the day of surgery, leave them at home. Please take a shower or bath the night before, or the morning of, surgery with an antibacterial soap. Wear comfortable, loose fitting clothing. - Jewelry must be removed prior to entering the operating room. Rings and piercings that are not removed may be cut off. - The hospital will not accept responsibility for valuables. - Please leave all valuables, including medications, at home the day of surgery. If you are going home after surgery, a licensed truck driver's offsider must drive you home. - NO public transportation without another adult if you receive anesthesia. - We recommend that an adult stay with you for 24 hours following discharge. - We also recommend that you do not drive, make important decision, drink alcoholic beverages, or take any drugs that were not prescribed by your health care provider for at least 24 hours after your discharge time. Follow any additional instructions given to you from your surgeon. If you or anyone in your household have experienced Covid symptoms in the past week, please notify your surgeon or the nurse liaison at the phone number below for possible testing. Telephone instructions given to PT Carlotta PERRY and asked if any additional questions and then verbalized understanding. Patient advised to call surgeon office or pre surgery nurse liaison [phone] if any additional questions.
--- NOTE | 2023-07-13 12:05 | PM.SD2 ---
Same Day Admit/Disch: HPI History of Present Illness Chief complaint: chronic cholecystitis with calculus Narrative: Francis Zheng is a 47 year old male whom I know from laparoscopic Zeenat fundoplication performed 09/19/2020. He had a diagnosis of Locke's esophagus and reflux esophagitis. Patient saw his primary care physician, Dr. Lozano, in early April this year with complaints of epigastric and right upper quadrant pain that would radiate to his shoulders. This pain was postprandial and was associated with nausea but no vomiting. Labs in early April showed AST and ALT to be around [id number], alkaline phosphatase was only slightly elevated at 160 and bilirubin was slightly elevated at 2.1. An ultrasound done at [facility] on May 29, 2019 for showed gallstones and hepatic steatosis. There was no biliary ductal dilatation with the common bile duct at 6 mm.. The patient was seen in my office in the middle of May and he noted he had been having these pains once or twice a week for about 2 months. He was recommended to proceed with laparoscopic cholecystectomy with intraoperative cholangiogram. He did have repeat lipase and LFTs just prior to surgery. Liver function tests at this time are completely normal as is the serum lipase and amylase level. Patient is taken to surgery tomorrow for laparoscopic cholecystectomy, intraoperative cholangiogram is not felt to be needed. [facility] Past Medical History Medical History Anxiety Locke's esophagus without dysplasia Constipation Gastro-esophageal reflux disease with esophagitis Surgical History Surgical History History of hemorrhoidectomy History of vasectomy Status post laparoscopic Zeenat fundoplication Family History Family History Father Acute myocardial infarction CAD (coronary artery disease) Smoker Sibling Cerebral palsy Grandparent Breast cancer Other Hypertension Diabetes mellitus Heart disease Other Cancer Social History Social History Smoking packs per day: 0.5 Smoking cigarettes per day: 10.0 Years smoked: 20 Smoking pack-years: 10.00 Smoking status: Current some day smoker Tobacco type: cigars Alcohol intake: current Drinks per week: 12 Alcohol use details: drinks 5-6 beers, 3-4x a week Substance use: never Substance use type: does not use Last use: 2014 Living arrangements: with family Occupation/Education: occupation Additional occupation/education comments: [employer] Gender identity (if verbalized by the patient): Male Sexual Orientation (if Verbalized by the Patient): Straight or Heterosexual Spiritual care concerns: No Same Day Admit/Disch: Med Pre-admit Medications Home Medications Medication Instructions Recorded Confirmed Type diazepam 5 mg tablet 5 mg PO BID PRN Anxiety 06/19/20 07/14/23 History linaclotide 72 mcg capsule 72 mcg PO DAILY #30 caps 06/21/20 07/06/23 Rx (Linzess) semaglutide (weight loss) 2.4 2.4 mg subcut WEEKLY 07/06/23 07/06/23 History mg/0.75 mL subcutaneous pen injector (Wegovy) ketorolac 10 mg tablet 10 mg PO Q6H 4 days #16 tabs 07/14/23 Rx oxycodone-acetaminophen 5 mg-325 0.5 - 1 tablet PO Q6H PRN pain #10 07/14/23 Rx mg tablet tabs Review of Systems Review of Systems All systems reviewed & are unremarkable except as noted in HPI and below (HPI and those items noted below) Constitutional Constitutional: Denies chills and Denies fever(s) Cardiovascular Cardiovascular: Denies chest pain, Denies diaphoresis, Denies dyspnea and Denies paroxysmal nocturnal dyspnea Respiratory Respiratory: Denies chest congestion, Denies cough and Denies dyspnea Integumentary/Breasts Skin/Breast: Denies lesions and Denies rash Exam Const: G
[2023-07-14] VITALS (8 sets, daily range): BP systolic 113–132; BP diastolic 58–94; PULSE 64–99; RESP 12–18; TEMP 36.2–36.5; O2SAT 98–100; BMI 26.3
--- NOTE | 2023-07-14 07:18 | P.PNAN_ITS ---
Anes - Initial Pre Proc Eval Procedure: Operation Date: 07/14/23 08:30 Proposed Procedures p Laparoscopic Cholecystectomy - Rogelio Blas MD Date/Time: 07/14/23 07:18 Surgeon: Rogelio Blas MD Pre Op Diagnosis: chronic cholecystitis with calculus Patient Data Age: 47 Gender: M Height: 1.75 m Weight: 83.9 kg Allergies Allergy/AdvReac Type Severity Reaction Status Date / Time No Known Allergies Allergy Verified 07/14/23 06:56 Home Medications Medication Instructions Recorded Confirmed Type diazepam 5 mg tablet 5 mg PO BID PRN Anxiety 06/19/20 07/06/23 History linaclotide 72 mcg capsule 72 mcg PO DAILY #30 caps 06/21/20 07/06/23 Rx (Linzess) semaglutide (weight loss) 2.4 2.4 mg subcut WEEKLY 07/06/23 07/06/23 History mg/0.75 mL subcutaneous pen injector (Wegovy) Patient hx anesthesia problems: none Family hx anesthesia problems: none Results Review: All pre-operative results and documents have been reviewed as part of the pre- operative evaluation. [facility] Past Medical History Medical History Anxiety Locke's esophagus without dysplasia Constipation Gastro-esophageal reflux disease with esophagitis Surgical History Surgical History History of hemorrhoidectomy History of vasectomy Status post laparoscopic Zeenat fundoplication Family History Family History Father Acute myocardial infarction CAD (coronary artery disease) Smoker Sibling Cerebral palsy Grandparent Breast cancer Other Hypertension Diabetes mellitus Heart disease Other Cancer Social History Social History Smoking packs per day: 0.5 Smoking cigarettes per day: 10.0 Years smoked: 20 Smoking pack-years: 10.00 Smoking status: Current some day smoker Tobacco type: cigars Alcohol intake: current Drinks per week: 12 Alcohol use details: drinks 5-6 beers, 3-4x a week Substance use: never Substance use type: does not use Last use: 2014 Living arrangements: with family Occupation/Education: occupation Additional occupation/education comments: [employer] Gender identity (if verbalized by the patient): Male Sexual Orientation (if Verbalized by the Patient): Straight or Heterosexual Spiritual care concerns: No Anes - Eval Final PreProcedure Day of Procedure 07/14/23 07:18 Patient weight: overweight Heart: regular rate and rhythm Lungs: clear to auscultation Airway: Mallampati scale class II Neurological: alert and oriented Last oral intake: >/= 8 hours ASA classification: II Emergent: no Anesthetic plan: proceed Anesthesia type and monitoring: general ETT and standard monitoring Results Review: All pre-operative results and documents have been reviewed as part of the pre- operative evaluation. Informed Consent: The patient's anesthetic plan and its attendant risks and benefits were disc ussed with the patient/family/POA. Questions were solicited and answers provided to the satisfaction of the patient/family/POA.
[2023-07-14] MEDS: ACETAMINOPHEN 500 MG TABLET 1000 MG PO (07:19)
[2023-07-14] MEDS: LACTATED RINGERS 1,000 ML 30 ML IV CONT ×2 (07:19→09:43)
[2023-07-14] MEDS: KETOROLAC 15 MG/ML VIAL (*BKC) IV PUSH (07:19)
--- NOTE | 2023-07-14 08:32 | WPDHPUPDATE1 ---
History and Physical Update Update Date/Time: 07/14/23 08:32 History and Physical has been reviewed, including an updated exam of the patient. There are NO changes in the patient's condition. Risks, benefits, and alternatives have been discussed and questions answered. Patient agrees to proceed with procedure.
[2023-07-14] MEDS: ceFAZolin 2 GM/D5W 50 ML 2 GM/50 ML BAG IVPB (08:41)
[2023-07-14] MEDS: BUPIVACAINE/EPINEPHRINE 0.5% 50 ML VIAL 30 ML INFILTRATE (08:58)
--- NOTE | 2023-07-14 09:45 | P.OP_ITS ---
Procedure Note - Detailed Date of Procedure 07/14/23 Pre-op Diagnosis chronic cholecystitis with calculus Post-op Diagnosis Same Procedure Performed Laparoscopic cholecystectomy Surgeon Rogelio Blas MD Director Hair Lizet Puri [facility] Anesthesia General and Local Indications Postprandial right upper quadrant pain associated with nausea. Ultrasound showed gallstones. Findings Chronic inflammation and multiple gallstones, normal liver, no biliary ductal dilatation. Description of Procedure Patient was taken to surgery and induced into general anesthesia. The abdomen is prepped and draped. Trocars were placed in the usual fashion using applied Medical optical trocars and starting with a varies needle. After the trocars were in place and CO2 was insufflated to distend the abdomen, I used a laparoscopic aspirator and decompress the gallbladder. The cholecystotomy was closed with a Vicryl endoloop. The gallbladder was then retracted anterosuperiorly. Traction was placed on the infundibulum and dissection in the triangle of Calot was carried out. The cystic duct and cystic artery were dissected out very clearly. The gallbladder was dissected away from the liver on its lower half. Critical view was achieved. I securely clipped and divided the cystic artery and cystic duct. We then dissected the gallbladder away from the remaining attachments to the liver. Once free from the liver, I placed the gallbladder in Endo-Catch bag and removed it per the epigastric 10 11 trocar site. We then replaced the epigastric trocar in reviewed the right upper quadrant. We used a little more cautery but all looked good with really no bleeding or evidence of bile leakage. We then evacuated CO 2 and removed the trocar sleeves. Skin wounds were closed with subcuticular 4-0 Monocryl skin suture. The wounds were dressed with Exofin surgical adhesive. On the back table, I opened the gallbladder and exposed the multiple stones in the gallbladder. Photographs of this were taken, 1 of which will be given to the patient. Patient was awakened and taken to recovery in good condition. Sponge needle counts were correct x2. Estimated Blood Loss -5 Drains No Packing No Pathology Yes (Gallbladder) Complications No immediate complications Condition Stable Disposition PACU [facility] Billing Surgery - Charge Forward: Surgery Billing (Laparoscopic cholecystectomy)
[2023-07-14] MEDS: ONDANSETRON INJ 4 MG/2 ML VIAL IV PUSH (09:50)
[2023-07-14] MEDS: fentaNYL CITRATE INJ (*CRX) 100 MCG/2 ML VIAL 25 MCG IV PUSH (10:26)
[2023-07-14] MEDS: oxyCODONE HCL (*CRX) 5 MG TAB IR PO (10:55)
== END 2023-07-14 11:14 | disposition home or self-care (01) ==
PROVIDERS: PCP Family Medicine; Visit Provider Surgery
PROC: 0FT44ZZ Resection of Gallbladder, Percutaneous Endoscopic Approach (ICD-10-PCS; CPT 47562; principal; 2023-07-14 08:30)
DX: K80.10 Calculus of gallbladder with chronic cholecystitis without obstruction (principal); F17.290 Nicotine dependence, other tobacco product, uncomplicated; Z79.85 Long-term (current) use of injectable non-insulin antidiabetic drugs; F41.9 Anxiety disorder, unspecified
CPT/HCPCS: 47562; 36415; 80076; 82150; 83690; 88304; A9270; J0690; J1100; J1885; J2250; J2405; J2704; J3010; J7030; J7120